=== PATIENT | male | born 1945 | race African-American/Black ===

== ENCOUNTER → 2020-04-01 | Outpatient (CLI) | payer MEDICARE, OTHER ==
[~2020-04-01] MED LIST: AMLO5TAB88 PO; CYAN-50 PO; KEPP500 PO; LOSA25TA3 PO; NEPVIT PO; POTA20TA82 PO; THIA100T72 PO
== END | disposition home or self-care (01) ==
LOC: LAB 13:11
PROVIDERS: ATTEND Surgery
DX: Z01.812 Encounter for preprocedural laboratory examination (principal); Z20.828 Contact with and (suspected) exposure to other viral communicable diseases
CPT/HCPCS: C9803; U0003

== ENCOUNTER 2021-06-24 14:23 | Emergency (ER) | payer MEDICARE, MEDICAID ==
[~2021-06-24] VITALS: Ht 177.8 cm; Wt 75.0 kg
[~2021-06-24 14:23] MED LIST changes: +AZOPT RIGHTEYE; +BIMA2.5D4 RIGHTEYE; +BRIM10DR2 RIGHTEYE; +CARB10DR EACHEYE; +ERGO2000 PO; +ROSU20TA2 PO
[2021-06-24 16:17] LABS: BASOPHILS % 0.9 % (0.0-2.0); EOSINOPHILS % 0.6 % (0.0-5.0); HEMATOCRIT. 44.5 % (42.0-52.0); HEMOGLOBIN. 14.1 g/dL (14.0-18.0); LYMPHOCYTES % 21.5 % (20.0-50.0); MEAN CORPUSCULAR HEMOGLOBIN 28.4 pg (28.0-32.0); MEAN CORPUSCULAR VOLUME 89.6 fL (80.0-94.0); MEAN PLATELET VOLUME 9.1 fl (7.4-10.4); MONOCYTES % 10.4 % (2.0-8.0); NEUTROPHILS % 66.6 % (40.0-76.0); PLATELET 213 x1000/uL (130-400); RED BLOOD CELL COUNT 4.97 mill/uL (4.7-6.1); RED CELL DISTRIBUTION WIDTH 15.1 % (11.6-14.6)
[2021-06-24 16:23] LABS: CHLORIDE 103 mEq/L (98-107)
[2021-06-24 16:27] LABS: ETHANOL BLOOD < 10 mg/dL
[2021-06-24] MEDS ORDERED: LEVETIRACETAM 1000MG PREMIX 100 ML IV ONE (16:30)
[2021-06-24] MEDS: LEVETIRACETAM 500MG PREMIX 100 ML IV SCH ×2 (17:10→18:47)
[2021-06-24 19:38] LABS: CHLORIDE 104 mEq/L (98-107)
[2021-06-24 19:57] LABS: CLARITY URINE CLEAR (CLEAR); COLOR URINE YELLOW (YELLOW); KETONES URINE 2+ (NEGATIVE); LEUKOCYTE ESTERASE URINE TRACE (NEGATIVE); NITRITE URINE NEGATIVE (NEGATIVE); OCCULT BLOOD URINE NEGATIVE (NEGATIVE); PH URINE 6.5 (4.5-8.0); PROTEIN URINE 1+ (NEGATIVE); SPECIFIC GRAVITY URINE 1.016 (1.005-1.030)
[2021-06-24 20:08] LABS: *AMPHETAMINES SCREEN URINE NEGATIVE (NEGATIVE); *BARBITURATES SCREEN URINE NEGATIVE (NEGATIVE); *BENZODIAZEPINES SCREEN URINE NEGATIVE (NEGATIVE); *COCAINE SCREEN URINE NEGATIVE (NEGATIVE); METHADONE URINE SCREEN NEGATIVE (NEGATIVE)
[2021-06-24 20:09] LABS: CANNABINOID URINE SCREEN NEGATIVE (NEGATIVE); OPIATES URINE SCREEN NEGATIVE (NEGATIVE); PHENCYCLIDINE URINE SCREEN NEGATIVE (NEGATIVE)
[2021-06-24 22:00] VITALS: BP 145/81
== END 2021-06-24 22:30 | disposition home or self-care (01) ==
LOC: ER 14:23
DX: G40.909 Epilepsy, unspecified, not intractable, without status epilepticus (principal); I10 Essential (primary) hypertension; R74.8 Abnormal levels of other serum enzymes; Z85.038 Personal history of other malignant neoplasm of large intestine
CPT/HCPCS: 36415; 80048; 80053; 80305; 80320; 81003; 84484; 85025; 96365; 99285; J1953; G0480

== ENCOUNTER → 2021-10-10 | Outpatient (CLI) | payer MEDICARE, MEDICAID | END | disposition home or self-care (01) | LOC: NM 08:51 | PROVIDERS: ATTEND Internal Medicine Hematology & Oncology | DX: C18.2 Malignant neoplasm of ascending colon (principal); C61 Malignant neoplasm of prostate; C79.89 Secondary malignant neoplasm of other specified sites; C79.51 Secondary malignant neoplasm of bone | CPT/HCPCS: 78306; A9503 ==

== ENCOUNTER 2022-02-07 09:00 | Inpatient (IN) | payer MEDICARE, MEDICAID ==
[~2022-02-07] VITALS: Ht 180.3 cm; Wt 64.0 kg
[~2022-02-07 09:00] MED LIST changes: +POTA-204 PO; -POTA20TA82 PO
[2022-02-07 12:33] LABS: BASOPHILS % 0.5 % (0.0-2.0); EOSINOPHILS % 0.5 % (0.0-5.0); HEMATOCRIT. 36.3 % (42.0-52.0); HEMOGLOBIN. 11.7 g/dL (14.0-18.0); MEAN CORPUSCULAR HEMOGLOBIN 28.9 pg (28.0-32.0); MEAN CORPUSCULAR VOLUME 89.8 fL (80.0-94.0); MEAN PLATELET VOLUME 8.2 fl (7.4-10.4); MONOCYTES % 6.5 % (2.0-8.0); NEUTROPHILS % 60.5 % (40.0-76.0); PLATELET 211 x1000/uL (130-400); RED BLOOD CELL COUNT 4.04 mill/uL (4.7-6.1); RED CELL DISTRIBUTION WIDTH 18.6 % (11.6-14.6)
[2022-02-07 12:39] LABS: CHLORIDE 103 mEq/L (98-107)
[2022-02-07 12:49] LABS: ETHANOL BLOOD < 10 mg/dL
[2022-02-07] MEDS ORDERED: FUROSEMIDE 40MG/4ML VIAL IVP NR (14:30)
[2022-02-07] MEDS ORDERED: MORPHINE SULFATE 4 MG/ML CPJ (NOT FOR IM USE) IV NR (14:30)
[2022-02-07] MEDS ORDERED: GUAIFENESIN 200MG/10ML SUGAR FREE UDC PO PRN (15:45)
[2022-02-07] MEDS ORDERED: HYDRALAZINE 20MG/ML VIAL IV PRN (15:45)
[2022-02-07] MEDS ORDERED: CLONIDINE 0.1MG TABLET PO PRN (15:45)
[2022-02-07] MEDS ORDERED: DIPHENHYDRAMINE 50MG/ML VIAL IV PRN (15:45)
[2022-02-07] MEDS ORDERED: MORPHINE SULFATE 2 MG/ML CPJ (NOT FOR IM USE) IV PRN (15:45)
[2022-02-07] MEDS ORDERED: ONDANSETRON HCL 4MG/2ML INJ IV PRN (15:45)
[2022-02-07] MEDS ORDERED: MAGNESIUM/ALUMINUM HYDROXIDE/SIMETHICONE 30ML UDC PO PRN (15:45)
[2022-02-07] MEDS ORDERED: IPRATROPIUM/ALBUTEROL 0.5-3(2.5)MG/3ML NEB HHN PRN (15:45)
[2022-02-07] MEDS: ENOXAPARIN 40MG/0.4ML SYR SUBCUT SCH (16:04)
[2022-02-07 16:16] LABS: *AMPHETAMINES SCREEN URINE NEGATIVE (NEGATIVE); *BARBITURATES SCREEN URINE NEGATIVE (NEGATIVE); *BENZODIAZEPINES SCREEN URINE NEGATIVE (NEGATIVE); *COCAINE SCREEN URINE NEGATIVE (NEGATIVE); CANNABINOID URINE SCREEN NEGATIVE (NEGATIVE); METHADONE URINE SCREEN NEGATIVE (NEGATIVE); OPIATES URINE SCREEN NEGATIVE (NEGATIVE); PHENCYCLIDINE URINE SCREEN NEGATIVE (NEGATIVE)
[2022-02-07 16:28] VITALS: BP 146/88
[2022-02-07 21:30] VITALS: BP 127/80
[2022-02-07] MEDS: SODIUM CHLORIDE 0.9% INJ 3ML FLUSH IVF SCH (23:08)
[2022-02-08 01:30] VITALS: BP 137/89
[2022-02-08 04:56] VITALS: BP 135/89
[2022-02-08] MEDS: SODIUM CHLORIDE 0.9% INJ 3ML FLUSH IVF SCH ×3 (05:45→22:00)
[2022-02-08 07:24] LABS: BASOPHILS % 0.3 % (0.0-2.0); EOSINOPHILS % 0.6 % (0.0-5.0); HEMATOCRIT. 30.6 % (42.0-52.0); HEMOGLOBIN. 10.4 g/dL (14.0-18.0); MEAN CORPUSCULAR HEMOGLOBIN 29.2 pg (28.0-32.0); MEAN CORPUSCULAR VOLUME 86.3 fL (80.0-94.0); MEAN PLATELET VOLUME 8.1 fl (7.4-10.4); MONOCYTES % 5.6 % (2.0-8.0); NEUTROPHILS % 67.5 % (40.0-76.0); PLATELET 214 x1000/uL (130-400); RED BLOOD CELL COUNT 3.55 mill/uL (4.7-6.1); RED CELL DISTRIBUTION WIDTH 18.3 % (11.6-14.6)
[2022-02-08 07:43] LABS: CHLORIDE 100 mEq/L (98-107)
[2022-02-08 08:00] VITALS: BP 135/78
[2022-02-08] MEDS: FUROSEMIDE 40MG/4ML VIAL IV SCH (09:45)
[2022-02-08 12:00] VITALS: BP 131/81
[2022-02-08] MEDS ORDERED: CARBOXYMETHYL EACHEYE SCH (13:00)
[2022-02-08] MEDS ORDERED: GLYCERIN EACHEYE SCH (13:00)
[2022-02-08] MEDS ORDERED: POLY80 EACHEYE SCH (13:00)
[2022-02-08] MEDS ORDERED: [UNRECOGNIZED DRUG - OTHER] EACHEYE SCH (13:00)
[2022-02-08] MEDS: FOLIC ACID/VITAMIN B COMP W-C TABLET PO SCH (15:58)
[2022-02-08] MEDS: POLYVINYL ALCOHOL OPHTH DROPS 15ML BOTHEYE SCH ×3 (15:58→21:03)
[2022-02-08] MEDS: THIAMINE HCL 100MG TABLET PO SCH (15:58)
[2022-02-08] MEDS: DOCUSATE SODIUM 100MG CAPSULE PO PRN (15:59)
[2022-02-08] MEDS: ENOXAPARIN 40MG/0.4ML SYR SUBCUT SCH (15:59)
[2022-02-08 16:00] VITALS: BP 116/72
[2022-02-08] MEDS ORDERED: MEDICATION NOT ON FORMULARY EA (Brimonidine Tartrate/Timolol (Combigan Eye Drops) 1 DROP RIGHTEYE SCH (17:00)
[2022-02-08] MEDS ORDERED: MEDICATION NOT ON FORMULARY EA (Brinzolamide (Azopt) 1 DROP) RIGHTEYE SCH (17:00)
[2022-02-08] MEDS ORDERED: ENZA40CA PO (17:51)
[2022-02-08] MEDS ORDERED: DARO300T PO (17:52)
[2022-02-08] MEDS ORDERED: AMLO2.5T45 PO (17:53)
[2022-02-08] MEDS ORDERED: NALOXONE HCL 0.4MG/ML VIAL IV PRN (18:00)
[2022-02-08] MEDS: BRIMONIDINE 0.2% OPHTH DROPS 5ML RIGHTEYE SCH (18:59)
[2022-02-08] MEDS: TIMOLOL MALEATE 0.5% OPHTH DROPS 5ML RIGHTEYE SCH (19:00)
[2022-02-08] MEDS: DORZOLAMIDE 2% OPHTH 10 ML BOTTLE RIGHTEYE SCH (19:03)
[2022-02-08 20:00] VITALS: BP 111/70
[2022-02-08] MEDS: ATORVASTATIN CALCIUM 40MG TABLET PO SCH (20:17)
[2022-02-08] MEDS: AMLODIPINE 5MG TABLET PO SCH (20:18)
[2022-02-08] MEDS: HYDROCODONE/ACETAMINOPHEN 5/325MG TABLET PO PRN ×2 (20:18→23:48)
[2022-02-08] MEDS ORDERED: MEDICATION NOT ON FORMULARY EA (Bimatoprost (Lumigan) 1 DROP) RIGHTEYE SCH (21:00)
[2022-02-08] MEDS: LATANOPROST 0.005% OPHTH DROPS 2.5ML RIGHTEYE SCH (21:03)
[2022-02-08] MEDS: LEVETIRACETAM 500MG TABLET PO SCH (21:10)
[2022-02-08] MEDS: LOSARTAN POTASSIUM 25 MG TABLET PO SCH (21:10)
[2022-02-09] VITALS: BP 110/72
[2022-02-09 04:00] VITALS: BP 121/70
[2022-02-09] MEDS: SODIUM CHLORIDE 0.9% INJ 3ML FLUSH IVF SCH ×3 (06:19→22:00)
[2022-02-09] MEDS: HYDROCODONE/ACETAMINOPHEN 5/325MG TABLET PO PRN (06:26)
[2022-02-09 07:38] LABS: BASOPHILS % 0.4 % (0.0-2.0); EOSINOPHILS % 0.6 % (0.0-5.0); HEMOGLOBIN. 9.9 g/dL (14.0-18.0); LYMPHOCYTES % 31.7 % (20.0-50.0); MEAN CORPUSCULAR HEMOGLOBIN 28.8 pg (28.0-32.0); MEAN CORPUSCULAR VOLUME 87.3 fL (80.0-94.0); MEAN PLATELET VOLUME 8.2 fl (7.4-10.4); MONOCYTES % 5.3 % (2.0-8.0); PLATELET 210 x1000/uL (130-400); RED BLOOD CELL COUNT 3.44 mill/uL (4.7-6.1); RED CELL DISTRIBUTION WIDTH 17.8 % (11.6-14.6)
[2022-02-09 07:46] LABS: CHLORIDE 99 mEq/L (98-107)
[2022-02-09 08:05] VITALS: BP 107/56
[2022-02-09] MEDS: THIAMINE HCL 100MG TABLET PO SCH (08:22)
[2022-02-09] MEDS: AMLODIPINE 5MG TABLET PO SCH ×2 (08:22→21:00)
[2022-02-09] MEDS: FUROSEMIDE 40MG/4ML VIAL IV SCH (08:22)
[2022-02-09] MEDS: CYANOCOBALAMIN 1000MCG TABLET PO SCH (08:22)
[2022-02-09] MEDS: LEVETIRACETAM 500MG TABLET PO SCH ×2 (08:22→23:29)
[2022-02-09] MEDS: LOSARTAN POTASSIUM 25 MG TABLET PO SCH ×2 (08:23→21:00)
[2022-02-09] MEDS: FOLIC ACID/VITAMIN B COMP W-C TABLET PO SCH (08:23)
[2022-02-09] MEDS: TIMOLOL MALEATE 0.5% OPHTH DROPS 5ML RIGHTEYE SCH ×2 (08:25→16:23)
[2022-02-09] MEDS: BRIMONIDINE 0.2% OPHTH DROPS 5ML RIGHTEYE SCH ×2 (08:25→16:23)
[2022-02-09] MEDS: DORZOLAMIDE 2% OPHTH 10 ML BOTTLE RIGHTEYE SCH ×2 (08:26→16:24)
[2022-02-09] MEDS ORDERED: MEDICATION NOT ON FORMULARY EA (Rosuvastatin Calcium (Crestor) 20 MG) PO SCH (09:00)
[2022-02-09] MEDS ORDERED: ERGOCALCIFEROL 50000 UNIT PO SCH (09:00)
[2022-02-09 10:06] LABS: T4 FREE 1.02 ng/dL (0.76-1.46)
[2022-02-09] MEDS: POLYVINYL ALCOHOL OPHTH DROPS 15ML BOTHEYE SCH ×4 (10:39→21:00)
[2022-02-09 11:59] VITALS: BP 104/65
[2022-02-09] MEDS: ERGOCALCIFEROL 50000UNITS CAPSULE PO SCH (12:19)
[2022-02-09 15:45] VITALS: BP 95/55
[2022-02-09 16:15] LABS: CREATINE KINASE 57 IU/L (39-308); CREATINE KINASE MB FRACTION < 1.0 ng/mL (0.5-3.6)
[2022-02-09] MEDS: ENOXAPARIN 40MG/0.4ML SYR SUBCUT SCH (16:22)
[2022-02-09] MEDS: LATANOPROST 0.005% OPHTH DROPS 2.5ML RIGHTEYE SCH (21:00)
[2022-02-09] MEDS ORDERED: SODIUM CHLORIDE 0.9% 250 ML IV ONE (21:45)
[2022-02-09] MEDS: ATORVASTATIN CALCIUM 40MG TABLET PO SCH (23:28)
[2022-02-10] VITALS: BP 110/66
[2022-02-10 00:47] LABS: CREATINE KINASE 43 IU/L (39-308); CREATINE KINASE MB FRACTION < 1.0 ng/mL (0.5-3.6)
[2022-02-10] MEDS: IPRATROPIUM/ALBUTEROL 0.5-3(2.5)MG/3ML NEB HHN SCH ×6 (03:18→21:47)
[2022-02-10 04:00] VITALS: BP 94/62
[2022-02-10] MEDS: SODIUM CHLORIDE 0.9% INJ 3ML FLUSH IVF SCH ×3 (06:09→22:00)
[2022-02-10 07:51] VITALS: BP 104/57
[2022-02-10 07:53] LABS: CREATINE KINASE 37 IU/L (39-308); CREATINE KINASE MB FRACTION < 1.0 ng/mL (0.5-3.6)
[2022-02-10] MEDS: LOSARTAN POTASSIUM 25 MG TABLET PO SCH ×2 (08:39→21:00)
[2022-02-10] MEDS: AMLODIPINE 5MG TABLET PO SCH ×2 (08:39→21:00)
[2022-02-10] MEDS: CYANOCOBALAMIN 1000MCG TABLET PO SCH (08:40)
[2022-02-10] MEDS: LEVETIRACETAM 500MG TABLET PO SCH ×2 (08:40→21:59)
[2022-02-10] MEDS: FUROSEMIDE 40MG/4ML VIAL IV SCH (08:40)
[2022-02-10] MEDS: FOLIC ACID/VITAMIN B COMP W-C TABLET PO SCH (08:40)
[2022-02-10] MEDS: THIAMINE HCL 100MG TABLET PO SCH (08:40)
[2022-02-10] MEDS: POLYVINYL ALCOHOL OPHTH DROPS 15ML BOTHEYE SCH ×4 (08:41→21:59)
[2022-02-10] MEDS: BRIMONIDINE 0.2% OPHTH DROPS 5ML RIGHTEYE SCH ×2 (08:41→16:18)
[2022-02-10] MEDS: DORZOLAMIDE 2% OPHTH 10 ML BOTTLE RIGHTEYE SCH ×2 (08:42→16:05)
[2022-02-10] MEDS: TIMOLOL MALEATE 0.5% OPHTH DROPS 5ML RIGHTEYE SCH ×2 (08:42→16:05)
[2022-02-10 11:29] VITALS: BP 92/53
[2022-02-10 15:08] VITALS: BP 95/55
[2022-02-10] MEDS: ENOXAPARIN 40MG/0.4ML SYR SUBCUT SCH (16:04)
[2022-02-10 20:00] VITALS: BP 97/56
[2022-02-10] MEDS: ATORVASTATIN CALCIUM 40MG TABLET PO SCH (21:58)
[2022-02-10] MEDS: LATANOPROST 0.005% OPHTH DROPS 2.5ML RIGHTEYE SCH (21:59)
[2022-02-11] VITALS: BP 99/52
[2022-02-11] MEDS: IPRATROPIUM/ALBUTEROL 0.5-3(2.5)MG/3ML NEB HHN SCH ×4 (02:07→21:23)
[2022-02-11 04:00] VITALS: BP 95/57
[2022-02-11] MEDS: SODIUM CHLORIDE 0.9% INJ 3ML FLUSH IVF SCH ×3 (06:00→22:16)
[2022-02-11 06:13] LABS: BASOPHILS % 0.4 % (0.0-2.0); EOSINOPHILS % 0.3 % (0.0-5.0); HEMATOCRIT. 28.8 % (42.0-52.0); HEMOGLOBIN. 9.6 g/dL (14.0-18.0); MEAN CORPUSCULAR HEMOGLOBIN 29.2 pg (28.0-32.0); MEAN CORPUSCULAR VOLUME 87.4 fL (80.0-94.0); MEAN PLATELET VOLUME 8.4 fl (7.4-10.4); MONOCYTES % 6.6 % (2.0-8.0); NEUTROPHILS % 68.7 % (40.0-76.0); PLATELET 200 x1000/uL (130-400); RED BLOOD CELL COUNT 3.29 mill/uL (4.7-6.1); RED CELL DISTRIBUTION WIDTH 18.2 % (11.6-14.6)
[2022-02-11 06:30] LABS: CHLORIDE 100 mEq/L (98-107)
[2022-02-11 08:13] VITALS: BP 97/60
[2022-02-11] MEDS: FUROSEMIDE 40MG/4ML VIAL IV SCH (08:43)
[2022-02-11] MEDS: THIAMINE HCL 100MG TABLET PO SCH (08:44)
[2022-02-11] MEDS: LEVETIRACETAM 500MG TABLET PO SCH ×2 (08:44→22:23)
[2022-02-11] MEDS: CYANOCOBALAMIN 1000MCG TABLET PO SCH (08:44)
[2022-02-11] MEDS: POLYVINYL ALCOHOL OPHTH DROPS 15ML BOTHEYE SCH ×4 (08:44→21:00)
[2022-02-11] MEDS: FOLIC ACID/VITAMIN B COMP W-C TABLET PO SCH (08:44)
[2022-02-11] MEDS: DORZOLAMIDE 2% OPHTH 10 ML BOTTLE RIGHTEYE SCH ×2 (08:44→16:37)
[2022-02-11] MEDS: BRIMONIDINE 0.2% OPHTH DROPS 5ML RIGHTEYE SCH ×2 (08:45→16:37)
[2022-02-11] MEDS: AMLODIPINE 5MG TABLET PO SCH ×2 (08:45→21:00)
[2022-02-11] MEDS: TIMOLOL MALEATE 0.5% OPHTH DROPS 5ML RIGHTEYE SCH ×2 (08:45→16:38)
[2022-02-11] MEDS: LOSARTAN POTASSIUM 25 MG TABLET PO SCH ×2 (08:46→21:00)
[2022-02-11 12:04] VITALS: BP 98/61
[2022-02-11 15:20] VITALS: BP 100/59
[2022-02-11] MEDS: ENOXAPARIN 40MG/0.4ML SYR SUBCUT SCH (16:38)
[2022-02-11 20:00] VITALS: BP 100/56
[2022-02-11] MEDS: LATANOPROST 0.005% OPHTH DROPS 2.5ML RIGHTEYE SCH (21:00)
[2022-02-11] MEDS: ATORVASTATIN CALCIUM 40MG TABLET PO SCH (22:23)
[2022-02-12] MEDS: IPRATROPIUM/ALBUTEROL 0.5-3(2.5)MG/3ML NEB HHN SCH ×4 (01:29→21:21)
[2022-02-12 04:00] VITALS: BP 98/65
[2022-02-12] MEDS: SODIUM CHLORIDE 0.9% INJ 3ML FLUSH IVF SCH ×3 (05:46→21:48)
[2022-02-12 06:49] LABS: BASOPHILS % 0.3 % (0.0-2.0); EOSINOPHILS % 0.1 % (0.0-5.0); HEMATOCRIT. 32.9 % (42.0-52.0); HEMOGLOBIN. 10.5 g/dL (14.0-18.0); LYMPHOCYTES % 18.9 % (20.0-50.0); MEAN CORPUSCULAR HEMOGLOBIN 29.1 pg (28.0-32.0); MEAN PLATELET VOLUME 8.5 fl (7.4-10.4); MONOCYTES % 10.3 % (2.0-8.0); NEUTROPHILS % 70.4 % (40.0-76.0); PLATELET 166 x1000/uL (130-400); RED BLOOD CELL COUNT 3.62 mill/uL (4.7-6.1); RED CELL DISTRIBUTION WIDTH 18.7 % (11.6-14.6)
[2022-02-12 07:41] LABS: CHLORIDE 101 mEq/L (98-107)
[2022-02-12 08:00] VITALS: BP 97/58
[2022-02-12] MEDS: FUROSEMIDE 40MG/4ML VIAL IV SCH (08:17)
[2022-02-12] MEDS: LOSARTAN POTASSIUM 25 MG TABLET PO SCH ×2 (08:17→21:00)
[2022-02-12] MEDS: TIMOLOL MALEATE 0.5% OPHTH DROPS 5ML RIGHTEYE SCH ×2 (08:18→17:00)
[2022-02-12] MEDS: AMLODIPINE 5MG TABLET PO SCH (08:18)
[2022-02-12] MEDS: THIAMINE HCL 100MG TABLET PO SCH (08:25)
[2022-02-12] MEDS: FOLIC ACID/VITAMIN B COMP W-C TABLET PO SCH (08:25)
[2022-02-12] MEDS: CYANOCOBALAMIN 1000MCG TABLET PO SCH (08:25)
[2022-02-12] MEDS: LEVETIRACETAM 500MG TABLET PO SCH ×2 (08:25→21:39)
[2022-02-12] MEDS: POLYVINYL ALCOHOL OPHTH DROPS 15ML BOTHEYE SCH ×4 (08:27→21:41)
[2022-02-12] MEDS: BRIMONIDINE 0.2% OPHTH DROPS 5ML RIGHTEYE SCH ×2 (08:28→17:44)
[2022-02-12] MEDS: DORZOLAMIDE 2% OPHTH 10 ML BOTTLE RIGHTEYE SCH ×2 (08:28→17:45)
[2022-02-12] MEDS ORDERED: MIDAZOLAM HCL 2 MG/2 ML VIAL ONE (09:33)
[2022-02-12] MEDS ORDERED: LIDOCAINE HCL 2% JELLY 5ML ONE (09:33)
[2022-02-12] MEDS ORDERED: TETRACAINE/BENZOCAINE/BUTAMBEN 20 GM SPRAY MM ONE (09:33)
[2022-02-12] MEDS ORDERED: FENTANYL CITRATE/PF 50MCG/ML 2ML VIAL ONE (09:33)
[2022-02-12 12:00] VITALS: BP 93/52
[2022-02-12] MEDS: ENOXAPARIN 60MG/0.6ML SYR SUBCUT SCH (12:44)
[2022-02-12 16:00] VITALS: BP 92/52
[2022-02-12 20:00] VITALS: BP 100/56
[2022-02-12] MEDS: ATORVASTATIN CALCIUM 40MG TABLET PO SCH (21:40)
[2022-02-12] MEDS: LATANOPROST 0.005% OPHTH DROPS 2.5ML RIGHTEYE SCH (21:42)
[2022-02-13] VITALS: BP 98/56
[2022-02-13] MEDS: ENOXAPARIN 60MG/0.6ML SYR SUBCUT SCH ×2 (00:28→12:16)
[2022-02-13] MEDS: IPRATROPIUM/ALBUTEROL 0.5-3(2.5)MG/3ML NEB HHN SCH ×4 (02:30→20:50)
[2022-02-13 04:00] VITALS: BP 100/58
[2022-02-13] MEDS: SODIUM CHLORIDE 0.9% INJ 3ML FLUSH IVF SCH ×3 (05:53→22:30)
[2022-02-13 08:00] VITALS: BP 93/53
[2022-02-13] MEDS: LOSARTAN POTASSIUM 25 MG TABLET PO SCH ×2 (08:13→21:00)
[2022-02-13] MEDS: TIMOLOL MALEATE 0.5% OPHTH DROPS 5ML RIGHTEYE SCH ×2 (08:14→16:06)
[2022-02-13] MEDS: FOLIC ACID/VITAMIN B COMP W-C TABLET PO SCH (08:18)
[2022-02-13] MEDS: CYANOCOBALAMIN 1000MCG TABLET PO SCH (08:18)
[2022-02-13] MEDS: THIAMINE HCL 100MG TABLET PO SCH (08:18)
[2022-02-13] MEDS: LEVETIRACETAM 500MG TABLET PO SCH ×2 (08:18→22:28)
[2022-02-13] MEDS: POLYVINYL ALCOHOL OPHTH DROPS 15ML BOTHEYE SCH ×4 (08:21→22:29)
[2022-02-13] MEDS: BRIMONIDINE 0.2% OPHTH DROPS 5ML RIGHTEYE SCH ×2 (08:21→16:08)
[2022-02-13] MEDS: DORZOLAMIDE 2% OPHTH 10 ML BOTTLE RIGHTEYE SCH ×2 (08:22→16:07)
[2022-02-13 11:15] LABS: HEMATOCRIT 25.7 % (42.0-52.0); HEMOGLOBIN 8.5 g/dL (14.0-18.0); MEAN CORPUSCULAR HEMOGLOBIN 29.7 pg (28.0-32.0); MEAN CORPUSCULAR VOLUME 89.7 fL (80.0-94.0); PLATELET 192 x1000/uL (130-400); RED BLOOD CELL COUNT 2.87 mill/uL (4.7-6.1)
[2022-02-13 12:00] VITALS: BP 92/51
[2022-02-13 15:47] LABS: BG BASE EXCESS 2.3 mmol/L (-2.0-2.0); BG CARBOXYHEMOGLOBIN 0.3 % (0.5-1.5); BG DEOXYHEMOGLOBIN 4.1 % (0.0-5.0); BG FRACTION INSPIRED OXYGEN 21; BG HCO3 ACT 27.1 mmol/L (22.0-26.0); BG METHEMOGLOBIN 0.4 % (0.0-1.5); BG OXYGEN SATURATION 95.9 % (92.0-98.5); BG OXYHEMOGLOBIN 95.2 % (94.0-97.0); BG PCO2 42.7 mmHg (35.0-45.0); BG PO2 82.4 mmHg (75.0-100.0); BG SAMPLE SITE RIGHT BRACHIAL; BG TOTAL HEMOGLOBIN 9.6 g/dL (12.0-18.0); BG VENT MODE ROOM AIR
[2022-02-13 16:00] VITALS: BP 105/59
[2022-02-13 16:46] LABS: HEMATOCRIT 28.3 % (42.0-52.0); HEMOGLOBIN 9.1 g/dL (14.0-18.0); PLATELET 182 x1000/uL (130-400); RED BLOOD CELL COUNT 3.15 mill/uL (4.7-6.1); RED CELL DISTRIBUTION WIDTH 18.7 % (11.6-14.6)
[2022-02-13 20:00] VITALS: BP 100/59
[2022-02-13] MEDS: ATORVASTATIN CALCIUM 40MG TABLET PO SCH (22:28)
[2022-02-13] MEDS: LATANOPROST 0.005% OPHTH DROPS 2.5ML RIGHTEYE SCH (22:29)
[2022-02-14] MEDS: ENOXAPARIN 60MG/0.6ML SYR SUBCUT SCH
[2022-02-14 00:52] VITALS: BP 105/58
[2022-02-14] MEDS: IPRATROPIUM/ALBUTEROL 0.5-3(2.5)MG/3ML NEB HHN SCH ×4 (02:15→21:56)
[2022-02-14 04:00] VITALS: BP 115/58
[2022-02-14] MEDS: SODIUM CHLORIDE 0.9% INJ 3ML FLUSH IVF SCH ×3 (05:18→22:22)
[2022-02-14 06:36] LABS: BASOPHILS % 0.3 % (0.0-2.0); EOSINOPHILS % 0.6 % (0.0-5.0); HEMATOCRIT. 24.1 % (42.0-52.0); HEMOGLOBIN. 7.9 g/dL (14.0-18.0); LYMPHOCYTES % 17.6 % (20.0-50.0); MEAN CORPUSCULAR HEMOGLOBIN 29.3 pg (28.0-32.0); MEAN CORPUSCULAR VOLUME 88.9 fL (80.0-94.0); MEAN PLATELET VOLUME 8.4 fl (7.4-10.4); NEUTROPHILS % 74.5 % (40.0-76.0); PLATELET 205 x1000/uL (130-400); RED BLOOD CELL COUNT 2.71 mill/uL (4.7-6.1); RED CELL DISTRIBUTION WIDTH 18.2 % (11.6-14.6)
[2022-02-14 06:53] LABS: CHLORIDE 101 mEq/L (98-107)
[2022-02-14 08:00] VITALS: BP 102/52
[2022-02-14] MEDS: DORZOLAMIDE 2% OPHTH 10 ML BOTTLE RIGHTEYE SCH ×2 (08:38→17:14)
[2022-02-14] MEDS: THIAMINE HCL 100MG TABLET PO SCH (08:38)
[2022-02-14] MEDS: LOSARTAN POTASSIUM 25 MG TABLET PO SCH ×2 (08:38→21:51)
[2022-02-14] MEDS: CYANOCOBALAMIN 1000MCG TABLET PO SCH (08:38)
[2022-02-14] MEDS: LEVETIRACETAM 500MG TABLET PO SCH ×2 (08:38→21:51)
[2022-02-14] MEDS: TIMOLOL MALEATE 0.5% OPHTH DROPS 5ML RIGHTEYE SCH ×2 (08:39→17:14)
[2022-02-14] MEDS: BRIMONIDINE 0.2% OPHTH DROPS 5ML RIGHTEYE SCH ×2 (08:39→17:15)
[2022-02-14] MEDS: POLYVINYL ALCOHOL OPHTH DROPS 15ML BOTHEYE SCH ×4 (08:40→21:50)
[2022-02-14] MEDS: FOLIC ACID/VITAMIN B COMP W-C TABLET PO SCH (08:40)
[2022-02-14] MEDS: ENOXAPARIN 40MG/0.4ML SYR SUBCUT SCH (11:40)
[2022-02-14] MEDS: ACETAMINOPHEN 325MG TABLET PO PRN (11:40)
[2022-02-14] MEDS ORDERED: IOHEXOL-350 100 ML BOTTLE ONE (13:10)
[2022-02-14 16:00] VITALS: BP 114/62
[2022-02-14 18:33] LABS: PROTHROMBIN TIME 11.1 sec (9.6-11.0)
[2022-02-14 20:00] VITALS: BP 100/50
[2022-02-14] MEDS: PANTOPRAZOLE SODIUM 40 MG/VIAL IV SCH (21:51)
[2022-02-14] MEDS: ATORVASTATIN CALCIUM 40MG TABLET PO SCH (21:51)
[2022-02-14] MEDS: LATANOPROST 0.005% OPHTH DROPS 2.5ML RIGHTEYE SCH (21:52)
[2022-02-15] VITALS: BP 103/54
[2022-02-15] MEDS: IPRATROPIUM/ALBUTEROL 0.5-3(2.5)MG/3ML NEB HHN SCH ×3 (01:16→21:03)
[2022-02-15 04:00] VITALS: BP 109/65
[2022-02-15] MEDS: SODIUM CHLORIDE 0.9% INJ 3ML FLUSH IVF SCH ×3 (05:20→22:18)
[2022-02-15 07:53] LABS: BASOPHILS % 0.3 % (0.0-2.0); EOSINOPHILS % 0.8 % (0.0-5.0); HEMATOCRIT. 26.1 % (42.0-52.0); HEMOGLOBIN. 8.7 g/dL (14.0-18.0); LYMPHOCYTES % 18.3 % (20.0-50.0); MEAN CORPUSCULAR HEMOGLOBIN 29.2 pg (28.0-32.0); MEAN CORPUSCULAR VOLUME 87.7 fL (80.0-94.0); MEAN PLATELET VOLUME 8.5 fl (7.4-10.4); MONOCYTES % 6.4 % (2.0-8.0); NEUTROPHILS % 74.2 % (40.0-76.0); PLATELET 220 x1000/uL (130-400); RED BLOOD CELL COUNT 2.98 mill/uL (4.7-6.1)
[2022-02-15 08:22] LABS: CHLORIDE 100 mEq/L (98-107)
[2022-02-15] MEDS: DORZOLAMIDE 2% OPHTH 10 ML BOTTLE RIGHTEYE SCH ×2 (09:00→16:54)
[2022-02-15] MEDS: FOLIC ACID/VITAMIN B COMP W-C TABLET PO SCH (09:00)
[2022-02-15] MEDS: CYANOCOBALAMIN 1000MCG TABLET PO SCH (10:13)
[2022-02-15] MEDS: PANTOPRAZOLE SODIUM 40 MG/VIAL IV SCH ×2 (10:13→22:17)
[2022-02-15] MEDS: THIAMINE HCL 100MG TABLET PO SCH (10:13)
[2022-02-15] MEDS: LEVETIRACETAM 500MG TABLET PO SCH ×2 (10:13→22:18)
[2022-02-15] MEDS: BRIMONIDINE 0.2% OPHTH DROPS 5ML RIGHTEYE SCH ×2 (10:14→16:54)
[2022-02-15] MEDS: DOCUSATE SODIUM 100MG CAPSULE PO PRN (10:14)
[2022-02-15] MEDS: POLYVINYL ALCOHOL OPHTH DROPS 15ML BOTHEYE SCH ×4 (10:14→22:17)
[2022-02-15] MEDS: LOSARTAN POTASSIUM 25 MG TABLET PO SCH ×2 (10:14→22:15)
[2022-02-15] MEDS: TIMOLOL MALEATE 0.5% OPHTH DROPS 5ML RIGHTEYE SCH ×2 (10:15→16:53)
[2022-02-15 12:00] VITALS: BP 133/67
[2022-02-15] MEDS: ENOXAPARIN 40MG/0.4ML SYR SUBCUT SCH (12:11)
[2022-02-15] MEDS ORDERED: LACTULOSE 20G/30ML UDC PO PRN (14:00)
[2022-02-15 16:00] VITALS: BP 114/63
[2022-02-15 16:45] LABS: TOTAL IRON BINDING CAPACITY 227 ug/dL (250-450)
[2022-02-15 20:00] VITALS: BP 129/89
[2022-02-15] MEDS: ATORVASTATIN CALCIUM 40MG TABLET PO SCH (22:15)
[2022-02-15] MEDS: LATANOPROST 0.005% OPHTH DROPS 2.5ML RIGHTEYE SCH (22:16)
[2022-02-16] VITALS (9 sets, daily range): BP systolic 83–139; BP diastolic 44–80
[2022-02-16] MEDS: IPRATROPIUM/ALBUTEROL 0.5-3(2.5)MG/3ML NEB HHN SCH ×4 (02:38→20:54)
[2022-02-16 05:29] LABS: BASOPHILS % 0.4 % (0.0-2.0); EOSINOPHILS % 0.1 % (0.0-5.0); LYMPHOCYTES % 18.7 % (20.0-50.0); MEAN CORPUSCULAR HEMOGLOBIN 29.4 pg (28.0-32.0); MEAN CORPUSCULAR VOLUME 88.3 fL (80.0-94.0); MEAN PLATELET VOLUME 8.3 fl (7.4-10.4); MONOCYTES % 8.8 % (2.0-8.0); PLATELET 218 x1000/uL (130-400); RED BLOOD CELL COUNT 3.06 mill/uL (4.7-6.1)
[2022-02-16] MEDS: SODIUM CHLORIDE 0.9% INJ 3ML FLUSH IVF SCH ×3 (06:00→21:25)
[2022-02-16 06:07] LABS: CHLORIDE 102 mEq/L (98-107)
[2022-02-16] MEDS: FOLIC ACID/VITAMIN B COMP W-C TABLET PO SCH (08:16)
[2022-02-16] MEDS: PANTOPRAZOLE SODIUM 40 MG/VIAL IV SCH ×2 (08:16→21:23)
[2022-02-16] MEDS: LEVETIRACETAM 500MG TABLET PO SCH ×3 (08:17→21:23)
[2022-02-16] MEDS: LOSARTAN POTASSIUM 25 MG TABLET PO SCH ×2 (08:17→14:30)
[2022-02-16] MEDS: THIAMINE HCL 100MG TABLET PO SCH (08:17)
[2022-02-16] MEDS: CYANOCOBALAMIN 1000MCG TABLET PO SCH (08:17)
[2022-02-16] MEDS: BRIMONIDINE 0.2% OPHTH DROPS 5ML RIGHTEYE SCH ×2 (08:18→17:11)
[2022-02-16] MEDS: TIMOLOL MALEATE 0.5% OPHTH DROPS 5ML RIGHTEYE SCH ×2 (08:18→17:11)
[2022-02-16] MEDS: DORZOLAMIDE 2% OPHTH 10 ML BOTTLE RIGHTEYE SCH ×2 (08:20→17:13)
[2022-02-16] MEDS: POLYVINYL ALCOHOL OPHTH DROPS 15ML BOTHEYE SCH ×4 (08:22→21:24)
[2022-02-16] MEDS: ACETAMINOPHEN 325MG TABLET PO PRN (08:26)
[2022-02-16] MEDS: ERGOCALCIFEROL 50000UNITS CAPSULE PO SCH (08:26)
[2022-02-16] MEDS ORDERED: SODIUM CHLORIDE 0.9% 500 ML IV ONE (12:00)
[2022-02-16] MEDS: ENOXAPARIN 40MG/0.4ML SYR SUBCUT SCH (14:03)
[2022-02-16 15:16] LABS: BG BASE EXCESS 1.5 mmol/L (-2.0-2.0); BG CARBOXYHEMOGLOBIN 0.3 % (0.5-1.5); BG DEOXYHEMOGLOBIN 5.5 % (0.0-5.0); BG HCO3 ACT 24.9 mmol/L (22.0-26.0); BG METHEMOGLOBIN 0.3 % (0.0-1.5); BG OXYGEN SATURATION 94.5 % (92.0-98.5); BG OXYHEMOGLOBIN 93.9 % (94.0-97.0); BG PCO2 34.3 mmHg (35.0-45.0); BG PH 7.478 (7.350-7.450); BG SAMPLE SITE RIGHT RADIAL; BG TOTAL HEMOGLOBIN 9.7 g/dL (12.0-18.0); BG VENT MODE NASAL CANNULA
[2022-02-16] MEDS ORDERED: LEVOFLOXACIN 500MG PREMIX 100 ML IV NR (16:00)
[2022-02-16] MEDS: ATORVASTATIN CALCIUM 40MG TABLET PO SCH ×2 (21:00→21:23)
[2022-02-16] MEDS: LATANOPROST 0.005% OPHTH DROPS 2.5ML RIGHTEYE SCH (21:25)
[2022-02-17] VITALS (12 sets, daily range): BP systolic 81–96; BP diastolic 46–59
[2022-02-17] MEDS: IPRATROPIUM/ALBUTEROL 0.5-3(2.5)MG/3ML NEB HHN SCH ×4 (01:33→20:20)
[2022-02-17] MEDS: SODIUM CHLORIDE 0.9% INJ 3ML FLUSH IVF SCH ×3 (06:24→21:12)
[2022-02-17 06:44] LABS: BASOPHILS % 0.2 % (0.0-2.0); HEMATOCRIT. 25.5 % (42.0-52.0); HEMOGLOBIN. 8.4 g/dL (14.0-18.0); LYMPHOCYTES % 12.1 % (20.0-50.0); MEAN CORPUSCULAR HEMOGLOBIN 29.5 pg (28.0-32.0); MEAN CORPUSCULAR VOLUME 89.1 fL (80.0-94.0); MEAN PLATELET VOLUME 8.6 fl (7.4-10.4); MONOCYTES % 10.9 % (2.0-8.0); NEUTROPHILS % 76.8 % (40.0-76.0); PLATELET 185 x1000/uL (130-400); RED BLOOD CELL COUNT 2.86 mill/uL (4.7-6.1); RED CELL DISTRIBUTION WIDTH 18.1 % (11.6-14.6)
[2022-02-17 07:00] LABS: CHLORIDE 104 mEq/L (98-107)
[2022-02-17] MEDS: PANTOPRAZOLE SODIUM 40 MG/VIAL IV SCH ×2 (08:41→21:07)
[2022-02-17] MEDS: CYANOCOBALAMIN 1000MCG TABLET PO SCH (08:42)
[2022-02-17] MEDS: LOSARTAN POTASSIUM 25 MG TABLET PO SCH (08:42)
[2022-02-17] MEDS: LEVETIRACETAM 500MG TABLET PO SCH ×2 (08:42→21:07)
[2022-02-17] MEDS: THIAMINE HCL 100MG TABLET PO SCH (08:42)
[2022-02-17] MEDS: FOLIC ACID/VITAMIN B COMP W-C TABLET PO SCH (08:42)
[2022-02-17] MEDS: BRIMONIDINE 0.2% OPHTH DROPS 5ML RIGHTEYE SCH ×2 (08:43→17:23)
[2022-02-17] MEDS: POLYVINYL ALCOHOL OPHTH DROPS 15ML BOTHEYE SCH ×4 (08:44→21:09)
[2022-02-17] MEDS: TIMOLOL MALEATE 0.5% OPHTH DROPS 5ML RIGHTEYE SCH ×2 (08:44→17:22)
[2022-02-17] MEDS: DORZOLAMIDE 2% OPHTH 10 ML BOTTLE RIGHTEYE SCH ×2 (08:44→17:23)
[2022-02-17] MEDS: ENOXAPARIN 40MG/0.4ML SYR SUBCUT SCH (11:21)
[2022-02-17] MEDS: MIDODRINE HCL 5MG TABLET PO SCH ×2 (12:35→17:22)
[2022-02-17] MEDS: LEVOFLOXACIN 500MG PREMIX 100 ML IV SCH (15:23)
[2022-02-17] MEDS ORDERED: LEVOFLOXACIN 250MG PREMIX 100 ML IV SCH (16:00)
[2022-02-17] MEDS ORDERED: THROAT LOZENGES-BENZOCAINE/MENTH/CETYLPYRD CL LOZENGES MM PRN (16:45)
[2022-02-17] MEDS ORDERED: SORBITOL 70% SOLN 30ML PO NR (17:00)
[2022-02-17] MEDS: LATANOPROST 0.005% OPHTH DROPS 2.5ML RIGHTEYE SCH (21:00)
[2022-02-17] MEDS: ATORVASTATIN CALCIUM 40MG TABLET PO SCH (21:07)
[2022-02-18] VITALS (12 sets, daily range): BP systolic 82–104; BP diastolic 39–62
[2022-02-18] MEDS: IPRATROPIUM/ALBUTEROL 0.5-3(2.5)MG/3ML NEB HHN SCH ×3 (02:33→19:57)
[2022-02-18] MEDS: SODIUM CHLORIDE 0.9% INJ 3ML FLUSH IVF SCH ×3 (06:10→22:00)
[2022-02-18 06:14] LABS: BASOPHILS % 0.3 % (0.0-2.0); EOSINOPHILS % 0.3 % (0.0-5.0); HEMATOCRIT. 24.3 % (42.0-52.0); HEMOGLOBIN. 8.1 g/dL (14.0-18.0); LYMPHOCYTES % 16.4 % (20.0-50.0); MEAN CORPUSCULAR HEMOGLOBIN 29.5 pg (28.0-32.0); MEAN CORPUSCULAR VOLUME 88.8 fL (80.0-94.0); MEAN PLATELET VOLUME 8.7 fl (7.4-10.4); MONOCYTES % 9.5 % (2.0-8.0); NEUTROPHILS % 73.5 % (40.0-76.0); PLATELET 209 x1000/uL (130-400); RED BLOOD CELL COUNT 2.74 mill/uL (4.7-6.1)
[2022-02-18 06:30] LABS: CHLORIDE 101 mEq/L (98-107)
[2022-02-18] MEDS: LEVETIRACETAM 500MG TABLET PO SCH ×2 (08:14→22:15)
[2022-02-18] MEDS: PANTOPRAZOLE SODIUM 40 MG/VIAL IV SCH ×2 (08:14→22:15)
[2022-02-18] MEDS: CYANOCOBALAMIN 1000MCG TABLET PO SCH (08:15)
[2022-02-18] MEDS: THIAMINE HCL 100MG TABLET PO SCH (08:15)
[2022-02-18] MEDS: MIDODRINE HCL 5MG TABLET PO SCH ×3 (08:15→16:07)
[2022-02-18] MEDS: TIMOLOL MALEATE 0.5% OPHTH DROPS 5ML RIGHTEYE SCH ×2 (08:15→16:08)
[2022-02-18] MEDS: POLYVINYL ALCOHOL OPHTH DROPS 15ML BOTHEYE SCH ×4 (08:16→22:16)
[2022-02-18] MEDS: BRIMONIDINE 0.2% OPHTH DROPS 5ML RIGHTEYE SCH ×2 (08:16→16:09)
[2022-02-18] MEDS: DORZOLAMIDE 2% OPHTH 10 ML BOTTLE RIGHTEYE SCH ×2 (08:17→16:09)
[2022-02-18] MEDS: FOLIC ACID/VITAMIN B COMP W-C TABLET PO SCH (10:18)
[2022-02-18] MEDS: ENOXAPARIN 40MG/0.4ML SYR SUBCUT SCH (12:22)
[2022-02-18] MEDS: LEVOFLOXACIN 500MG PREMIX 100 ML IV SCH (16:07)
[2022-02-18] MEDS: ATORVASTATIN CALCIUM 40MG TABLET PO SCH (22:15)
[2022-02-18] MEDS: LATANOPROST 0.005% OPHTH DROPS 2.5ML RIGHTEYE SCH (22:16)
[2022-02-19] VITALS (12 sets, daily range): BP systolic 91–138; BP diastolic 54–83
[2022-02-19] MEDS: IPRATROPIUM/ALBUTEROL 0.5-3(2.5)MG/3ML NEB HHN SCH ×4 (01:41→21:26)
[2022-02-19] MEDS: SODIUM CHLORIDE 0.9% INJ 3ML FLUSH IVF SCH ×3 (06:00→22:00)
[2022-02-19 06:43] LABS: BASOPHILS % 0.4 % (0.0-2.0); EOSINOPHILS % 0.2 % (0.0-5.0); HEMATOCRIT. 24.5 % (42.0-52.0); HEMOGLOBIN. 7.9 g/dL (14.0-18.0); LYMPHOCYTES % 13.9 % (20.0-50.0); MEAN CORPUSCULAR HEMOGLOBIN 29.1 pg (28.0-32.0); MEAN CORPUSCULAR VOLUME 89.7 fL (80.0-94.0); MEAN PLATELET VOLUME 8.8 fl (7.4-10.4); MONOCYTES % 6.6 % (2.0-8.0); NEUTROPHILS % 78.9 % (40.0-76.0); PLATELET 261 x1000/uL (130-400); RED BLOOD CELL COUNT 2.73 mill/uL (4.7-6.1); RED CELL DISTRIBUTION WIDTH 18.2 % (11.6-14.6)
[2022-02-19 08:16] LABS: CHLORIDE 99 mEq/L (98-107)
[2022-02-19] MEDS: CYANOCOBALAMIN 1000MCG TABLET PO SCH (08:53)
[2022-02-19] MEDS: LEVETIRACETAM 500MG TABLET PO SCH ×2 (08:53→21:41)
[2022-02-19] MEDS: THIAMINE HCL 100MG TABLET PO SCH (08:53)
[2022-02-19] MEDS: PANTOPRAZOLE SODIUM 40 MG/VIAL IV SCH ×2 (08:53→21:41)
[2022-02-19] MEDS: FOLIC ACID/VITAMIN B COMP W-C TABLET PO SCH (08:53)
[2022-02-19] MEDS: TIMOLOL MALEATE 0.5% OPHTH DROPS 5ML RIGHTEYE SCH ×2 (08:54→17:45)
[2022-02-19] MEDS: LATANOPROST 0.005% OPHTH DROPS 2.5ML RIGHTEYE SCH (08:54)
[2022-02-19] MEDS: DORZOLAMIDE 2% OPHTH 10 ML BOTTLE RIGHTEYE SCH ×2 (08:54→17:45)
[2022-02-19] MEDS: BRIMONIDINE 0.2% OPHTH DROPS 5ML RIGHTEYE SCH ×2 (08:54→17:44)
[2022-02-19] MEDS: MIDODRINE HCL 5MG TABLET PO SCH ×3 (08:55→17:47)
[2022-02-19] MEDS: POLYVINYL ALCOHOL OPHTH DROPS 15ML BOTHEYE SCH ×4 (09:00→21:42)
[2022-02-19] MEDS ORDERED: SODIUM CHLORIDE 0.9% 500 ML IV ONE (13:00)
[2022-02-19] MEDS: ENOXAPARIN 40MG/0.4ML SYR SUBCUT SCH (14:50)
[2022-02-19] MEDS: LEVOFLOXACIN 500MG PREMIX 100 ML IV SCH (17:41)
[2022-02-19] MEDS: ATORVASTATIN CALCIUM 40MG TABLET PO SCH (21:41)
[2022-02-20] MEDS ORDERED: DEXTROSE 50% WATER 50ML SYRINGE IV ONE (00:23)
== END 2022-02-20 04:25 | DRG 194 ==
LOC: ER 09:00 → 8WST 14:58 → ENRESERV 16:05 → 5EST 02-16 15:32
PROVIDERS: ADMIT Internal Medicine; ATTEND Internal Medicine
PROC: B24BZZ4 Ultrasonography of Heart with Aorta, Transesophageal (ICD-10-PCS; principal; 2022-02-12)
PROC: 0BH18EZ Insertion of Endotracheal Airway into Trachea, Via Natural or Artificial Opening Endoscopic (ICD-10-PCS; 2022-02-20)
PROC: 5A12012 Performance of Cardiac Output, Single, Manual (ICD-10-PCS; 2022-02-20)
DX: I13.2 Hypertensive heart and chronic kidney disease with heart failure and with stage 5 chronic kidney disease, or end stage renal disease (principal); J96.00 Acute respiratory failure, unspecified whether with hypoxia or hypercapnia; E44.0 Moderate protein-calorie malnutrition; N18.6 End stage renal disease; I95.9 Hypotension, unspecified; I51.3 Intracardiac thrombosis, not elsewhere classified; I42.9 Cardiomyopathy, unspecified; E11.22 Type 2 diabetes mellitus with diabetic chronic kidney disease; Z20.822 Contact with and (suspected) exposure to COVID-19; I50.43 Acute on chronic combined systolic (congestive) and diastolic (congestive) heart failure; G40.909 Epilepsy, unspecified, not intractable, without status epilepticus; G89.29 Other chronic pain; D72.819 Decreased white blood cell count, unspecified; F17.200 Nicotine dependence, unspecified, uncomplicated; J44.9 Chronic obstructive pulmonary disease, unspecified; R26.9 Unspecified abnormalities of gait and mobility; Z99.2 Dependence on renal dialysis; D64.9 Anemia, unspecified; Z91.14 Patient's other noncompliance with medication regimen; Z86.73 Personal history of transient ischemic attack (TIA), and cerebral infarction without residual deficits; Z68.1 Body mass index [BMI] 19.9 or less, adult; Z85.038 Personal history of other malignant neoplasm of large intestine; Z90.49 Acquired absence of other specified parts of digestive tract; R50.9 Fever, unspecified
CPT/HCPCS: 31500; 36415; 36600; 71045; 75571; 80048; 80053; 80061; 80076; 80305; 80320; 82270; 82375; 82378; 82550; 82553; 82607; 82728; 82746; 82805; 82962; 82977; 83036; 83540; 83550; 83880; 84439; 84443; 84484; 85025; 85027; 85044; 85379; 87426; 92950; 93005; 93306; 93312; 93970; 94640; 97116; 97161; 97162; 97530; 99285; C9113; J1200; J1650; J1940; J1956; J2250; J2270; J3010; Q9967; G0480